=== PATIENT | male | born 1980 | race Two or more races ===

== ENCOUNTER 2022-11-08 18:15 | Emergency (ER) | payer OTHER ==
[~2022-11-08] VITALS: Ht 177.8 cm; Wt 66.7 kg
[2022-11-08] MEDS ORDERED: RELAFEN DS1000 MG PO (22:52)
[2022-11-08] MEDS ORDERED: CYCLOBENZAPRINE10 MG PO (22:52)
== END 2022-11-08 22:58 | disposition home or self-care (01) ==
LOC: ER 18:15
DX: M25.562 Pain in left knee (principal); J45.909 Unspecified asthma, uncomplicated